=== PATIENT | female | born 1985 | race Caucasian/White ===

== ENCOUNTER 2021-12-12 13:59 | Emergency (ER) | payer OTHER ==
[2021-12-12 14:04] VITALS: BP 107/62; PULSE 97; RESP 18; TEMP 97.8; BMI 19.6
== END 2021-12-12 16:30 | disposition home or self-care (01) ==
LOC: JERFT 13:59
DX: S86.111A Strain of other muscle(s) and tendon(s) of posterior muscle group at lower leg level, right leg, initial encounter (principal); X50.0XXA Overexertion from strenuous movement or load, initial encounter
CPT/HCPCS: 93971-TC; 99284-25